=== PATIENT | female | born 1995 | race Caucasian/White ===

== ENCOUNTER 2022-06-29 10:45 | Emergency (ER) | payer OTHER ==
[~2022-06-29 10:45] MED LIST: MACROBID100 M1 PO; ZITHROMAX Z PA250 MG PO; [UNRECOGNIZED DRUG - OTHER]
[2022-06-29 10:53] VITALS: BP 127/72
== END 2022-06-29 12:23 | disposition home or self-care (01) ==
LOC: ED 10:45
DX: S93.402A Sprain of unspecified ligament of left ankle, initial encounter (principal); X50.1XXA Overexertion from prolonged static or awkward postures, initial encounter; Y93.89 Activity, other specified; Y92.89 Other specified places as the place of occurrence of the external cause; Y99.8 Other external cause status